=== PATIENT | male | born 1975 | race Hispanic/Latino ===

== ENCOUNTER 2024-11-02 20:20 | Emergency (ER) | payer BC ==
[~2024-11-02] VITALS: Ht 175.3 cm; Wt 83.0 kg
[2024-11-02 20:25] VITALS: PULSE 70; RESP 18; TEMP 98.5
[2024-11-02] MEDS ORDERED: HYDROCHLOROTHIA25 MG PO (21:22)
[2024-11-02 21:23] VITALS: BP 160/88; PULSE 70; RESP 18; TEMP 98.5; O2SAT 96
== END 2024-11-02 21:27 | disposition home or self-care (01) ==
LOC: FSED 20:33
DX: R42 Dizziness and giddiness (principal); R07.9 Chest pain, unspecified; R51.9 Headache, unspecified; I10 Essential (primary) hypertension
CPT/HCPCS: 93005; 99283